=== PATIENT | male | born 2000 | race Hispanic/Latino ===

== ENCOUNTER 2023-11-10 10:29 | Inpatient (IN) | payer OTHER, SELFPAY ==
--- NOTE | 2023-11-10 11:26 | RAD REPORT ---
EXAM DESCRIPTION: CT - Head Brain Wo Cont - 11/10/2023 11:18 am CLINICAL HISTORY: HTN;Headache COMPARISON: No comparisons TECHNIQUE: All CT scans are performed using dose optimization technique as appropriate and may inclu de automated exposure control or mA/KV adjustment according to patient size. FINDINGS: No intracranial hemorrhage, hydrocephalus or extra-axial fluid collection.No areas of brai n edema or evidence of midline shift. The paranasal sinuses and mastoids are clear. The calvarium is intact. IMPRESSION: No acute intracranial abnormality.
--- NOTE | 2023-11-10 11:34 | RAD REPORT ---
EXAM DESCRIPTION: RAD - Chest Single View - 11/10/2023 11:26 am CLINICAL HISTORY: CHEST PAIN COMPARISON: No comparisons FINDINGS: Lines: None. Lungs: No evidence of edema or pneumonia. Pleural: No significant pleural effusions or pneumothorax. Cardiac: The heart size is within normal limits. Mediastinum: Within normal limits. Bones: No acute fractures. Other: None IMPRESSION: No acute cardiopulmonary disease.
[2023-11-10 12:09] LABS: Absolute Eosinophils 0.3 K/uL (0-0.5); Absolute Lymphocytes (CBC) 1.3 K/uL (0.7-4.9); Absolute Monocytes 0.5 K/uL (0.1-1.3); Basophils % 0.4 % (0-1.3); Eosinophils % 2.8 % (0-4.4); Hematocrit 47.7 % (39.6-49.0); Hemoglobin 17.1 g/dL (13.6-17.9); Lymphocytes % 14.2 % (15.3-44.8); MCH 30.5 pg (27.0-35.0); MCHC 35.9 g/dL (32.0-36.0); MPV 8.9 fL (7.6-11.3); Monocytes % 5.4 % (3.3-12.3); Neutrophils % 77.2 % (41.7-73.7); Nucleated RBC Absolute Count 0.2 (0-0); Nucleated Red Blood Cells % 1.7 % (0-0); Platelets 261 thou/uL (152-406); Red Cell Distribution Width 13.7 % (12.1-15.2)
[2023-11-10 12:26] LABS: SARS-CoV-2 Antigen CONTROL BLUE LINE VIS/BG OK; SARS-CoV-2 Antigen Rapid Res Negative (Negative)
[2023-11-10 12:29] LABS: Albumin 4.4 g/dL (3.4-5.0); Albumin/Globulin Ratio 1.1 (1.1-1.8); Anion Gap 10.4 mEq/L (5.0-15.0); Bilirubin Direct 0.1 mg/dL (0-0.2); Bilirubin Indirect, Calculated 0.4 mg/dL (0.2-0.8); Bilirubin Total 0.5 mg/dL (0.2-1.0); Globulin 4.1 g/dL (2.3-3.5); Potassium 3.4 mEq/L (3.5-5.1); Protein, Total 8.5 g/dL (6.4-8.2)
[2023-11-10 12:30] LABS: Troponin High Sensitivity 290.5 pg/mL (<58.9)
[2023-11-10 12:49] LABS: Atypical Lymphocytes 1 %; Band Neutrophils 2 % (0-1); Blood Morphology Comment NOT SEEN (NOT SEEN); Differential Total Cells Count 100; Eosinophils 1 % (0-3); Lymphocytes 21 % (15-42); Monocytes 1 % (0-10); Platelet Estimate ADEQ; Segmented Neutrophils 74 % (40-80)
[2023-11-10] MEDS ORDERED: cloNIDine HCL 0.1 MG TAB ONE (13:09)
--- NOTE | 2023-11-10 13:24 | EDPHYS ---
Physician Documentation [facility] Name: Mckinley Whitmore Age: 23 yrs Sex: Male : 2000 Arrival Date: 11/10/2023 Time: 10:29 Bed 18 Private MD: ED Physician Ta Cotton HPI: 11/09 11:28 This 23 yrs old Male presents to ER via Ambulatory with complaints of Chest rn Pain, High Blood Pressure, Vomiting. 11:28 The patient has elevated blood pressure and discovered this at a physician's office. rn Onset: The symptoms/episode began/occurred at an unknown time. Modifying factors:. Severity of symptoms: At its worst the blood pressure was moderate, in the emergency department the blood pressure is unchanged. The patient has not experienced similar symptoms in the past. Patient reports sent here for evaluation of high blood pressure by his PCP. Went to clinic today for 3 days of runny nose, sneezing, myalgias and noted to have high blood pressure. Patient reports father with high blood pressure but not sure when he started medication. Patient reports mild headache, intermittent chest pain that follows sneezing episodes and myalgias. No known fever. No shortness of breath. No abdominal or back pain.. Historical: - Allergies: 10:45 No Known Allergies; hb - Home Meds: 10:45 None [Active]; hb - PMHx: 10:45 None; hb - PSHx: 10:45 None; hb - Immunization history:: Adult Immunizations up to date. - Infectious Disease History:: Denies. - Social history:: Smoking status: Patient denies any tobacco usage or history of. - Family history:: not pertinent. - Hospitalizations: : No recent hospitalization is reported. ROS: 11:28 Constitutional: Negative for fever, chills, and weight loss, Eyes: Negative for injury, rn pain, redness, and discharge, ENT: Positive for runny nose and congestion Neck: Negative for injury, pain, and swelling, Cardiovascular: Positive for chest pain Respiratory: Negative for shortness of breath, cough, wheezing, and pleuritic chest pain, Abdomen/GI: Positive for nausea and vomiting Back: Negative for injury and pain, MS/Extremity: Negative for injury and deformity, Skin: Negative for injury, rash, and discoloration, Neuro: Positive for headache and generalized weakness Exam: 11:28 Constitutional: This is a well developed, well nourished patient who is awake, alert, rn and in no acute distress. Head/Face: Normocephalic, atraumatic. Eyes: Pupils equal round and reactive to light, extra-ocular motions intact. Lids and lashes normal. Conjunctiva and sclera are non-icteric and not injected. Cornea within normal limits. Periorbital areas with no swelling, redness, or edema. Neck: Trachea midline, no masses palpated, and no cervical lymphadenopathy. Supple, full range of motion without nuchal rigidity, or vertebral point tenderness. No Meningismus. Cardiovascular: Regular rate and rhythm. No pulse deficits. Respiratory: No increased work of breathing, no retractions or nasal flaring. Abdomen/GI: Soft, non-tender Skin: Warm, dry MS/ Extremity: Pulses equal, no cyanosis. Neuro: Awake and alert, GCS 15, oriented to person, place, time, and situation. Cranial nerves II-XII grossly intact. Motor strength 5/5 in all extremities. Sensory grossly intact. Cerebellar exam normal. Normal gait. 14:41 ECG was reviewed by the Attending Physician. rn Vital Signs: 10:43 BP 192 / 128; Pulse 61; Resp 14; Temp 98.2(TE); Pulse Ox 99% on R/A; Weight 116.12 kg; hb Height 5 ft. 9 in. ; Pain 6/10; 12:00 BP 155 / 109; Pulse 71; Resp 16; Pulse Ox 96% ; db 13:00 BP 159 / 115; Pulse 64; Resp 18; Pulse Ox 97% on R/A; db 14:00 BP 153 / 107; Pulse 67; Resp 15; Pulse Ox 98% on R/A; db 14:30 BP 133 / 87; Pulse 75; Resp 15; Pulse Ox 96% on R/A; db 15:14 BP 122 / 88; Pulse 70; Resp 18; Pulse Ox 100% on R/A; db 10:43 Body Mass Index 37.80 (116.12 kg, 175.26 cm) hb 10:43 Pain Scale: Adult hb MDM: 10:52 Patient medically screened. rn 13:22 Differential diagnosis: hypertensive crisis, Malignant HTN, intracerebral hemorrhage. rn Data reviewed: vital signs, nurses notes, lab test result(s), EKG, radiologic studies, and as a result, I will admit patient. Consideration of Admission/Observation Patient was admitted/placed on observation. Escalation of care including admission/observation considered. Counseling: I had a detailed discussion with the patient and/or guardian regarding the historical points, exam findings, and any diagnostic results supporting the discharge/admit diagnosis, the presence of at least one elevated blood pressure reading (>120/80) during this emergency department visit, lab results, radiology results, the need for further work-up and treatment in the hospital. Response to treatment: the patient's symptoms have mildly improved after treatment, and as a result, I will admit patient. ED course: Patient with malignant hypertension, elevated troponin, will admit to hospital service for further reduction and cardiology consultation. . 11/09 11:06 Order name: Basic Metabolic Panel; Complete Time: 12:37 rn 11/09 11:06 Order name: CBC with Diff; Complete Time: 13:22 rn 11/09 11:06 Order name: LFT's; Complete Time: 12:37 rn 11/09 11:06 Order name: NT PRO-BNP; Complete Time: 12:37 rn 11/09 11:06 Order name: Troponin HS; Complete Time: 12:37 rn 11/09 11:06 Order name: SARS RAPID; Complete Time: 12:37 rn 11/09 11:06 Order name: Flu; Complete Time: 12:37 rn 11/09 11:06 Order name: Strep rn 11/09 12:20 Order name: Manual Differential; Complete Time: 13:22 EDCA 11/09 12:31 Order name: Throat Culture EDCA 11/09 14:11 Order name: Troponin High Sensitivity EDCA 11/09 14:11 Order name: Troponin High Sensitivity EDCA 11/09 14:11 Order name: Troponin High Sensitivity EDCA 11/09 11:06 Order name: CT Head Brain wo Cont; Complete Time: 11:42 rn 11/09 11:06 Order name: XRAY Chest (1 view); Complete Time: 11:42 rn 11/09 14:10 Order name: Echo with Doppler EDCA 11/09 10:54 Order name: EKG; Complete Time: 10:54 rn 11/09 10:54 Order name: EKG - Nurse/Tech; Complete Time: 12:03 rn 11/09 11:06 Order name: Cardiac monitoring; Complete Time: 12:12 rn 11/09 11:06 Order name: IV Saline Lock; Complete Time: 12:02 rn 11/09 11:06 Order name: Labs collected and sent; Complete Time: 12:02 rn 11/09 11:06 Order name: O2 Per Protocol; Complete Time: 12:02 rn 11/09 11:06 Order name: O2 Sat Monitoring; Complete Time: 12:02 rn EC:41 Rate is 55 beats/min. Rhythm is regular. QRS [place] is Normal. DE interval is normal. QRS rn interval is normal. QT interval is normal. No Q waves. T waves are Normal. No ST changes noted. Clinical impression: Sinus bradycardia. Interpreted by me. Reviewed by me. Administered Medications: 13:00 Drug: cloNIDine PO 0.2 mg PO once Route: PO; db 13:51 Drug: Aspirin PO Chewable Tablet 324 mg PO once; 81 mg tablets x 4 Route: PO; db 15:15 Not Given (BP LOWERr): mg PO once db Disposition Summary: 11/10/23 13:24 Hospitalization Ordered Notes: Hospitalization Status: Observation rn Location: Telemetry/MedSurg (observation) rn Condition: Stable rn Problem: new rn Symptoms: have improved rn Bed/Room Type: Standard rn Provider: Pardeep Cotton(11/10/23 13:32) rn Room Assignment: [facility](11/10/23 14:20) Diagnosis - Essential (primary) hypertension rn - Elevated troponin rn - Chest pain, unspecified rn Forms: - Medication Reconciliation Form rn - SBAR form rn - Leadership Thank You Letter rn Signatures: Dispatcher [employer] EDCA Ta Cotton MD MD rn Attema, Lee, OLD TESTAMENT PROFESSOR-C OLD TESTAMENT PROFESSOR-Cla1 Laura De Jesus RN RN Luiza Mcdaniels Danielle RN RN db Corrections: (The following items were deleted from the chart) 11:07 11:07 BASIC METABOLIC PANEL+C.LAB.BRZ ordered. EDMS EDMS 11:07 11:07 CBC+H.LAB.BRZ ordered. EDMS EDMS 11:07 11:07 HEPATIC FUNCTION+C.LAB.BRZ ordered. EDMS EDMS 11:07 11:07 PROBNP+C.LAB.BRZ ordered. EDMS EDMS 11:07 11:07 Troponin High Sensitivity+FIDE.BRZ ordered. EDMS EDMS 13:32 13:24 Allan High rn rn 14:20 13:24 rohan camacho
--- NOTE | 2023-11-10 13:24 | ER ---
Nurse's Notes [facility] Name: Mckinley Whitmore Age: 23 yrs Sex: Male : 2000 Arrival Date: 11/10/2023 Time: 10:29 Bed 18 Private MD: Diagnosis: Essential (primary) hypertension;Elevated troponin;Chest pain, unspecified Presentation: 11/09 10:43 Chief complaint: Sent by Mariajose Carter for BP 240/150. 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 Coronavirus screen: At this time, the client does not indicate any symptoms associated with coronavirus-19. Ebola Screen: No symptoms or risks identified at this time. Initial Sepsis Screen: Does the patient meet any 2 criteria? No. Patient's initial sepsis screen is negative. Does the patient have a suspected source of infection? No. Patient's initial sepsis screen is negative. Risk Assessment: Do you want to hurt yourself or someone else? Patient reports no desire to harm self or others. Onset of symptoms was November 09, 2023. 10:43 Method Of Arrival: Ambulatory hb 10:43 Acuity: ELÍAS 2 hb Triage Assessment: 10:45 General: Appears in no apparent distress. Behavior is calm, cooperative. Pain: Pain hb currently is 6 out of 10 on a pain scale. Neuro: Level of Consciousness is awake, alert, obeys commands, Oriented to person, place, time, situation. Cardiovascular: Reports chest pain, Patient's skin is warm and dry. Respiratory: Respiratory effort is even, unlabored, Respiratory pattern is regular, symmetrical. Historical: - Allergies: 10:45 No Known Allergies; hb - Home Meds: 10:45 None [Active]; hb - PMHx: 10:45 None; hb - PSHx: 10:45 None; hb - Immunization history:: Adult Immunizations up to date. - Infectious Disease History:: Denies. - Social history:: Smoking status: Patient denies any tobacco usage or history of. - Family history:: not pertinent. - Hospitalizations: : No recent hospitalization is reported. Screenin:13 [facility] ED Fall Risk Assessment (Adult) History of falling in the last 3 months, db including since admission No falls in past 3 months (0 pts) Confusion or Disorientation No (0 pts) Intoxicated or Sedated No (0 pts) Impaired Gait No (0 pts) Mobility Assist Device Used No (0 pt) Altered Elimination No (0 pt) Score/Fall Risk Level 0 - 2 = Low Risk Oriented to surroundings, Maintained a safe environment. Abuse screen: Denies threats or abuse. Denies injuries from another. Nutritional screening: No deficits noted. Tuberculosis screening: No symptoms or risk factors identified. Assessment: 10:52 Reassessment: Patient appears in no apparent distress at this time. Patient and/or db family updated on plan of care and expected duration. Pain level reassessed. Patient is alert, oriented x 3, equal unlabored respirations, skin warm/dry/pink. General: Appears in no apparent distress. comfortable, Behavior is calm, cooperative. 13:00 Reassessment: Patient appears in no apparent distress at this time. Patient and/or db family updated on plan of care and expected duration. Pain level reassessed. Patient is alert, oriented x 3, equal unlabored respirations, skin warm/dry/pink. Pain: Denies pain. Pain does not radiate. Pain began gradually. Neuro: Level of Consciousness is awake, alert, obeys commands, Oriented to person, place, time, situation. Cardiovascular: Reports chest pain. Respiratory: Airway is patent Respiratory effort is even, unlabored, Respiratory pattern is regular, symmetrical. GI: No deficits noted. No signs and/or symptoms were reported involving the gastrointestinal system. : No deficits noted. No signs and/or symptoms were reported regarding the genitourinary system. 14:00 Reassessment: Patient appears in no apparent distress at this time. Patient and/or db family updated on plan of care and expected duration. Pain level reassessed. Patient is alert, oriented x 3, equal unlabored respirations, skin warm/dry/pink. 14:54 Reassessment: Patient appears in no apparent distress at this time. Patient and/or db family updated on plan of care and expected duration. Pain level reassessed. Patient is alert, oriented x 3, equal unlabored respirations, skin warm/dry/pink. REPORT FAXED TO 4TH FLOOR. 15:01 Reassessment: Patient appears in no apparent distress at this time. Patient and/or db family updated on plan of care and expected duration. Pain level reassessed. Patient is alert, oriented x 3, equal unlabored respirations, skin warm/dry/pink. 15:15 Reassessment: NOTIFIED PROVIDER GILES PATIENT LISINOPRIL HELD DUE TO BP LOWERED. db Vital Signs: 10:43 BP 192 / 128; Pulse 61; Resp 14; Temp 98.2(TE); Pulse Ox 99% on R/A; Weight 116.12 kg; hb Height 5 ft. 9 in. ; Pain 6/10; 12:00 BP 155 / 109; Pulse 71; Resp 16; Pulse Ox 96% ; db 13:00 BP 159 / 115; Pulse 64; Resp 18; Pulse Ox 97% on R/A; db 14:00 BP 153 / 107; Pulse 67; Resp 15; Pulse Ox 98% on R/A; db 14:30 BP 133 / 87; Pulse 75; Resp 15; Pulse Ox 96% on R/A; db 15:14 BP 122 / 88; Pulse 70; Resp 18; Pulse Ox 100% on R/A; db 10:43 Body Mass Index 37.80 (116.12 kg, 175.26 cm) hb 10:43 Pain Scale: Adult hb ED Course: 10:34 Patient arrived in ED. mg5 10:42 Angelina Maza, RN is Primary Nurse. db 10:45 Triage completed. hb 10:45 Arm band placed on. hb 10:46 Client placed on continuous cardiac and pulse oximetry monitoring. NIBP monitoring hb applied. commercial account executive on. Pulse ox on. NIBP on. 10:52 Ta Cotton MD is Attending Physician. rn 11:19 CT Head Brain wo Cont In Process Unspecified. EDMS 11:28 XRAY Chest (1 view) In Process Unspecified. EDMS 12:01 Initial lab(s) drawn, by me, sent to lab. COVID swab sent to lab. Flu and/or RSV swab ty sent to lab. Strep swab sent to lab. Inserted saline lock: 20 gauge in right antecubital area, using aseptic technique. Blood collected. 12:02 Strep Sent. ty 12:02 Flu Sent. ty 12:02 SARS RAPID Sent. ty 12:02 Basic Metabolic Panel Sent. ty 12:02 CBC with Diff Sent. ty 12:02 LFT's Sent. ty 12:03 NT PRO-BNP Sent. ty 12:03 Troponin HS Sent. ty 12:13 Patient has correct armband on for positive identification. Bed in low position. Call db light in reach. Side rails up X 1. Provided Education on: LABS. 13:23 Allan High MD is Hospitalizing Provider. rn 13:32 Pardeep Cotton MD is Hospitalizing Provider. rn 15:01 No provider procedures requiring assistance completed. Patient admitted, IV remains in db place. O2 via room air. Administered Medications: 13:00 Drug: cloNIDine PO 0.2 mg PO once Route: PO; db 13:51 Drug: Aspirin PO Chewable Tablet 324 mg PO once; 81 mg tablets x 4 Route: PO; db 15:15 Not Given (BP LOWERr): [id number] mg PO once db Medication: 15:01 VIS not applicable for this client. db Outcome: 13:24 Decision to Hospitalize by Provider. rn 15:01 Admitted to ER Hold. Please see [facility] for further documentation. db 15:01 Condition: stable 15:01 Instructed on the need for admit, 15:21 Patient left the ED. db Signatures: Dispatcher [employer] EDTa Schmidt MD MD rn Baxter, Heather, RN RN hb Benton, Danielle, RN RN db Shanice Mukherjee mg5 Michael Thomas ty
[2023-11-10] MEDS ORDERED: ASPIRIN 81 MG CHEWABLE TABLET ONE (13:45)
--- NOTE | 2023-11-10 14:50 | P.HP ---
Certification for Inpatient Patient admitted to: Inpatient With expected LOS: >2 Midnights Patient will require the following post-hospital care: None Practitioner: I am a practitioner with admitting privileges, knowledge of patient current condition, hospital course, and medical plan of care. Services: Services provided to patient in accordance with Admission requirements found in Title 42 Section 412.3 of the Code of Federal Regulations Patient History Date of Service: 11/10/23 Reason for admission: Hypertensive emergency History of Present Illness: 23-year-old otherwise healthy male presents emergency department for elevated blood pressure. He reports that he been having sneezing followed by 2 to 3 minutes of generalized bodyaches for the past 3 days and for that reason went to see a primary care provider. This was his first time visiting a PCP and upon arrival his blood pressure was checked and found to be markedly elevated as high as 220/150. It was rechecked multiple times at their facility he subsequently became nauseous and threw up and was sent to the emergency department for evaluation. He denies any known history of hypertension, has not seen a primary care doctor in the past but does get annual physicals with work and has never been told he has high blood pressure in the past. He denies any recreational drug use, did take some oral decongestants yesterday while at work, he is unsure what he took when he took 2 pills as directed on the box. He does admit to occasional caffeine use with a red bull but did not drink 1 today or yesterday. He was evaluated in the emergency department his labs are significant for a moderately elevated troponin 290.5, chemistry otherwise unremarkable. EKG without STEMI criteria, and sinus rhythm. ED prior wishes to admit for hypertensive emergency - Past Medical/Surgical History -: None -: None Psychosocial/ Personal History: Lives with his significant other, works in the [employer] - Family History Father -: Hypertension - Social History Alcohol use: No CD- Drugs: No Caffeine use: Yes Place of Residence: Home Review of Systems 10-point ROS is otherwise unremarkable Respiratory: Other (Sneezing periodically) Musculoskeletal: Other (Myalgias) Physical Examination - Physical Exam General: Alert, In no apparent distress, Oriented x3 HEENT: Atraumatic, PERRLA Neck: Supple, 2+ carotid pulse no bruit Respiratory: Clear to auscultation bilaterally, Normal air movement Cardiovascular: Regular rate/rhythm, Normal S1 S2 Gastrointestinal: Normal bowel sounds Musculoskeletal: No tenderness Integumentary: No rashes Neurological: Normal speech, Normal strength at 5/5 x4 extr, Normal tone - Studies Laboratory Data (last 24 hrs) 11/10/23 11/10/23 11:55 11:55 WBC 9.10 Hgb 17.1 Hct 47.7 Plt Count 261 Sodium 139 Potassium 3.4 L BUN 12 Creatinine 0.79 Glucose 113 H Total Bilirubin 0.5 AST 27 ALT 62 H Alkaline Phosphatase 74 Microbiology Data (last 24 hrs): 11/10/23 11:57 Throat Group A Streptococcus Rapid Screen - Final 11/10/23 11:57 Nasopharnyx Influenza Type A Antigen Screen - Final 11/10/23 11:57 Nasopharnyx Influenza Type B Antigen Screen - Final Assessment and Plan - Plan Assessment: Hypertensive emergency NSTEMI Plan: Hypertensive emergency NSTEMI Significant hypertension, initially 200s over 140/150 Given clonidine 0.2 in ED, blood pressure improved to 160s over 115 Initial troponin 290, will trend troponins, monitor on telemetry obtain echocardiogram/cardiology consult Start lisinopril 10 mg daily, titrate medications as needed Does report use of oral decongestants yesterday on 11/08, denies excess caffeine intake Only family history is father has hypertension as well DVT PPX: Ambulate 4 times daily Code status: Full Discharge Plan: Home Plan to discharge in: 48 Hours - Advance Directives Does patient have a Living Will: No Does patient have a Durable POA for Healthcare: No - Code Status/Comfort Care Code Status Assessed: Yes (Full code) Critical Care: No Time Spent Managing Pts Care (In Minutes): 70
[2023-11-10] MEDS ORDERED: HYDRALAZINE HCL 20 MG/ML VIAL IV PRN (15:33)
[2023-11-10] MEDS ORDERED: ACETAMINOPHEN 500 MG TAB PO PRN (15:33)
[2023-11-10 15:55] VITALS: BMI 37.8
[2023-11-10] MEDS: POTASSIUM CL SA 10 MEQ TAB PO ONE (16:32)
[2023-11-10] MEDS ORDERED: INFLUENZA VACCINE (for 6+ mo) 0.5 ML DOSE IMVAC ONE (17:00)
--- NOTE | 2023-11-10 20:42 | CON ---
Date of Consultation: 11/10/2023 Reason For Consultation: Elevated blood pressure. History Of Present Illness: A 23-year-old male with obesity, otherwise no other medical history, who presented to an Urgent Care with wheezing and cough and sneezing, upper respiratory tract infection symptoms. He was also found to have a blood pressure of 220/150, is sent to the emergency room. Blo od pressure was treated and it improved significantly. He denies having any chest pain or shortness of breath. No other complaints. Troponin was borderline elevated. Hence, I was consulted. Past Medical History: None. Medications: None. Allergies: NO KNOWN DRUG ALLERGIES. Family History: No premature coronary artery disease or cancer. Social History: Does not smoke or drink. Does not use any drugs. Review of Systems: All systems reviewed and they are negative except as mentioned in HPI. Physical Examination: Vital signs: Reviewed. Head and Neck: Pupils are equal, reactive to light. Intact eye movements. No JVD. No cervical lym phadenopathy. Neck: Supple. Thyroid is not enlarged. Lungs: Clear to auscultation bilaterally. No rhonchi, wheezing, or crackles. No accessory muscle u se. Heart: Regular rate and rhythm. No extra sounds. Abdomen: Soft, nontender. Bowel sounds positive. No organomegaly. No masses or hernia. No rigidi ty or rebound. Extremities: No edema, clubbing, cyanosis. Intact pulses. Skin: No rashes. Neurologic: Alert, awake, and oriented x3. No acute focal deficits appreciated. Investigations: Troponin 290. BUN 12, creatinine 0.79. BNP is 43. Hemoglobin is 17.1. Assessment And Plan: 1.Elevated troponin. This is likely demand ischemia. Given his age, this is very unlikely to be ac nedra coronary syndrome, however, trend 2 more sets of cardiac enzymes and obtain an echo. 2.Hypertensive emergency. Blood pressure is down now. Recommend to start him on oral medications w ith Losartan with hydrochlorothiazide 25/12.5 mg daily. Monitor BUN, creatinine, and electrolytes da aileen on that and monitor his response to the above treatment. Also, I recommend to obtain CT angiogra m of the chest to evaluate for possible coarctation of the aorta as this is an extremely high blood p ressure for a young patient like this. It is likely secondary hypertension. 3.Hypokalemia. Replace potassium. SR/MODL Voice ID: [id number] Report ID: [id number]
[2023-11-10 21:27] LABS: Specific Gravity > 1.030 (1.005-1.030); Sqamous Epithelial None Seen /HPF (None Seen); Urine Bacteria None Seen /HPF (<20); Urine Bilirubin NEGATIVE (Negative); Urine Blood Negative (Negative); Urine Clarity Clear (Clear); Urine Color Yellow (Yellow); Urine Culture Reflex Order NOT NEEDED; Urine Glucose NEGATIVE (Negative); Urine Ketones NEGATIVE (Negative); Urine Microscopic Reflex YN ORDER UMIC; Urine Mucus 2+ /HPF (None Seen); Urine Nitrite NEGATIVE (Negative); Urine Protein 1+ (Negative); Urine RBC <5 /HPF (None Seen); Urine Urobilinogen Normal (Normal); Urine WBC <5 /HPF (<5)
[2023-11-11 05:27] LABS: Absolute Eosinophils 0.4 K/uL (0-0.5); Absolute Lymphocytes (CBC) 2.3 K/uL (0.7-4.9); Absolute Monocytes 0.5 K/uL (0.1-1.3); Basophils % 0.8 % (0-1.3); Eosinophils % 6.1 % (0-4.4); Hematocrit 41.6 % (39.6-49.0); Lymphocytes % 36.4 % (15.3-44.8); MCH 30.8 pg (27.0-35.0); MCHC 36.1 g/dL (32.0-36.0); MCV 85.4 fL (80-100); MPV 8.6 fL (7.6-11.3); Monocytes % 8.4 % (3.3-12.3); Neutrophils % 48.3 % (41.7-73.7); Nucleated Red Blood Cells % 0.2 % (0-0); Platelets 237 thou/uL (152-406); RBC Red Blood Cell Count 4.87 M/uL (4.33-5.43); Red Cell Distribution Width 13.6 % (12.1-15.2)
[2023-11-11 05:58] LABS: Albumin 3.7 g/dL (3.4-5.0); Anion Gap 7.9 mEq/L (5.0-15.0); Bilirubin Total 0.4 mg/dL (0.2-1.0); Globulin 3.6 g/dL (2.3-3.5); Potassium 3.9 mEq/L (3.5-5.1); Protein, Total 7.3 g/dL (6.4-8.2); Thyroid Stimulating Hormone 0.711 uIU/mL (0.358-3.740)
[2023-11-11] MEDS: hydroCHLOROthiazide 12.5 MG CAP PO SCH (08:10)
[2023-11-11] MEDS: LOSARTAN POTASSIUM 50 MG TABLET PO SCH (08:10)
[2023-11-11] MEDS: ASPIRIN EC 81 MG TAB PO SCH (08:11)
[2023-11-11 08:28] VITALS: BP 133/80
--- NOTE | 2023-11-11 09:46 | RAD REPORT ---
EXAM DESCRIPTION: CT - Chest Angio - 11/11/2023 8:32 am CLINICAL HISTORY: Chest pain severe hypertension COMPARISON: None. TECHNIQUE: Dynamically enhanced axial 3 mm thick images of the chest were obtained during administra tion of 100 mL Isovue 370 IV contrast. Coronal and oblique reconstruction images were generated and r eviewed. Exam utilizes a protocol for optimal evaluation of pulmonary arterial tree. Maximum intensity projections 3D imaging was utilized All CT scans are performed using dose optimization technique as appropriate and may include automated exposure control or mA/KV adjustment according to patient size. FINDINGS: A thoracic aortic aneurysm is not present. No thoracic aortic dissection is seen. No aortic coarctation Soft tissue anterior mediastinum has the appearance of normal thymus Suboptimal opacification of the pulmonary arteries. No gross pulmonary embolus seen A pleural effusion is not seen. A pericardial effusion is not seen. A lung consolidation is not present. Mild fatty liver IMPRESSION: No significant abnormality is displayed
[2023-11-11] MEDS ORDERED: INFLUENZA VACCINE (for 6+ mo) 0.5 ML DOSE IMVAC ONE (10:00)
[2023-11-11 10:59] VITALS: TEMP 98.1
--- NOTE | 2023-11-11 12:27 | P.DS ---
Admission Date: 11/10/23 Discharge Date: 11/11/23 Reason for Admission: Hypertensive emergency Consultations: Cardiology-Dr. Alston Brief History of Present Illness: 23-year-old otherwise healthy male presents emergency department for elevated blood pressure. He reports that he been having sneezing followed by 2 to 3 minutes of generalized bodyaches for the past 3 days and for that reason went to see a primary care provider. This was his first time visiting a PCP and upon arrival his blood pressure was checked and found to be markedly elevated as high as 220/150. It was rechecked multiple times at their facility he subsequently became nauseous and threw up and was sent to the emergency department for evaluation. He denies any known history of hypertension, has not seen a primary care doctor in the past but does get annual physicals with work and has never been told he has high blood pressure in the past. He denies any recreational drug use, did take some oral decongestants yesterday while at work, he is unsure what he took when he took 2 pills as directed on the box. He does admit to occasional caffeine use with a red bull but did not drink 1 today or yesterday. He was evaluated in the emergency department his labs are significant for a moderately elevated troponin 290.5, chemistry otherwise unremarkable. EKG without STEMI criteria, and sinus rhythm. ED prior wishes to admit for hypertensive emergency Hospital Course: Assessment: Hypertensive emergency NSTEMI Patient was admitted to the hospital for hypertensive emergency initially with blood pressures greater than 220 systolic over 120 diastolic and a mildly elevated high-sensitivity opponent around 200. His blood pressure markedly improved after 0.2 mg of clonidine was given in the emergency department. He was asymptomatic from this blood pressure and remained asymptomatic during hospitalization. CT skin of his head was performed which was negative for acute abnormalities as well as a CT angiogram of the chest to rule out aortic coarctation. CTA of the chest was also negative for acute findings. Troponin trended down when rechecked, chemistry/renal function remained within normal limits and blood pressures in the 130s today after losartan/hydrochlorothiazide. Patient was seen by cardiology who recommends initiation of losartan 25 mg and hydrochlorothiazide 12.5 mg daily which have been sent to his pharmacy. Please follow-up with your primary care doctor in 1 week Please also follow-up with cardiology in 1 to 2 weeks and schedule outpatient echocardiogram Please obtain a blood pressure cuff and check your blood pressure daily as discussed keeping a log for your primary care doctor <Shaheen Deleon - Last Filed: 11/11/23 12:26> Admission Date: 11/10/23 Discharge Date: 11/11/23 <Pardeep Cotton - Last Filed: 11/11/23 17:09> Disposition: ROUTINE DISCHARGE Discharge Condition: GOOD Vital Signs/Physical Exam: Temp Pulse Resp BP Pulse Ox 98.1 F 69 18 133/80 98 11/11/23 08:00 11/11/23 08:10 11/11/23 08:00 11/11/23 08:10 11/11/23 08:00 General: Alert, In no apparent distress, Oriented x3 HEENT: Atraumatic, PERRLA Neck: Supple, JVD not distended Respiratory: Clear to auscultation bilaterally, Normal air movement Cardiovascular: Regular rate/rhythm, Normal S1 S2 Gastrointestinal: Normal bowel sounds Musculoskeletal: No tenderness Integumentary: No rashes Neurological: Normal speech, Normal tone Laboratory Data at Discharge: WBC 6.30 thou/uL (4.3-10.9) 11/11/23 04:37 Hgb 15.0 g/dL (13.6-17.9) D 11/11/23 04:37 Hct 41.6 % (39.6-49.0) 11/11/23 04:37 Plt Count 237 thou/uL (152-406) 11/11/23 04:37 Sodium 139 mEq/L (136-145) 11/11/23 04:37 Potassium 3.9 mEq/L (3.5-5.1) D 11/11/23 04:37 BUN 15 mg/dL (7-18) 11/11/23 04:37 Creatinine 0.92 mg/dL (0.70-1.30) 11/11/23 04:37 Glucose 115 mg/dL (74-106) H 11/11/23 04:37 Total Bilirubin 0.4 mg/dL (0.2-1.0) 11/11/23 04:37 AST 21 U/L (15-37) 11/11/23 04:37 ALT 50 U/L (16-61) 11/11/23 04:37 Alkaline Phosphatase 63 U/L (45-117) 11/11/23 04:37 <Shaheen Deleon - Last Filed: 11/11/23 12:26> Vital Signs/Physical Exam: Temp Pulse Resp BP Pulse Ox 98.1 F 69 18 133/80 98 11/11/23 08:00 11/11/23 08:10 11/11/23 08:00 11/11/23 08:10 11/11/23 08:00 Laboratory Data at Discharge: WBC 6.30 thou/uL (4.3-10.9) 11/11/23 04:37 Hgb 15.0 g/dL (13.6-17.9) D 11/11/23 04:37 Hct 41.6 % (39.6-49.0) 11/11/23 04:37 Plt Count 237 thou/uL (152-406) 11/11/23 04:37 Sodium 139 mEq/L (136-145) 11/11/23 04:37 Potassium 3.9 mEq/L (3.5-5.1) D 11/11/23 04:37 BUN 15 mg/dL (7-18) 11/11/23 04:37 Creatinine 0.92 mg/dL (0.70-1.30) 11/11/23 04:37 Glucose 115 mg/dL (74-106) H 11/11/23 04:37 Total Bilirubin 0.4 mg/dL (0.2-1.0) 11/11/23 04:37 AST 21 U/L (15-37) 11/11/23 04:37 ALT 50 U/L (16-61) 11/11/23 04:37 Alkaline Phosphatase 63 U/L (45-117) 11/11/23 04:37 <Pardeep Cotton - Last Filed: 11/11/23 17:09> Diet: Regular Activity: Ad cely Time spent managing pt's care (in minutes): 30 <Shaheen Deleon - Last Filed: 11/11/23 12:26> Physician Review: Patient Assessed, Agree with Above Assessment and Plan (Patient seen and examined on rounds this morning with [employer] Adrienne. I performed a substantial part of the MDM during this patient's care today. BP much improved. Reports quite forceful and frequent sneezing prior to chest pain starting. Consistent with MSK etiology / soreness. workup otherwise negative) <Pardeep Cotton - Last Filed: 11/11/23 17:09> Home Medications: Losartan Potassium 25 mg PO DAILY #30 tab 11/11/23 hydroCHLOROthiazide [Hydrochlorothiazide] 12.5 mg PO DAILY #30 tab 11/11/23 New Medications: hydroCHLOROthiazide [Hydrochlorothiazide] 12.5 mg PO DAILY #30 tab Losartan Potassium 25 mg PO DAILY #30 tab Physician Discharge Instructions: Patient was admitted to the hospital for hypertensive emergency initially with blood pressures greater than 220 systolic over 120 diastolic and a mildly elevated high-sensitivity opponent around 200. His blood pressure markedly improved after 0.2 mg of clonidine was given in the emergency department. He was asymptomatic from this blood pressure and remained asymptomatic during hospitalization. CT skin of his head was performed which was negative for acute abnormalities as well as a CT angiogram of the chest to rule out aortic coarctation. CTA of the chest was also negative for acute findings. Troponin trended down when rechecked, chemistry/renal function remained within normal limits and blood pressures in the 130s today after losartan/hydrochlorothiazide. Patient was seen by cardiology who recommends initiation of losartan 25 mg and hydrochlorothiazide 12.5 mg daily which have been sent to his pharmacy. Please follow-up with your primary care doctor in 1 week Please also follow-up with cardiology in 1 to 2 weeks and schedule outpatient echocardiogram Please obtain a blood pressure cuff and check your blood pressure daily as discussed keeping a log for your primary care doctor Followup: Jim Alston MD [ACTIVE - CAN ADMIT] - 1-2 Weeks (call to schedule an appointment) GOVIND FERGUSON [Primary Care Provider] - 1 Week (call to schedule an appointment)
[2023-11-11 13:08] VITALS: O2SAT 98
== END 2023-11-11 13:15 | disposition home or self-care (01) | DRG 282 ==
LOC: ER 10:29 → ERHOLD 14:09 → 4TH 14:44
PROVIDERS: ADMIT Hospitalist; ATTEND Hospitalist
DX: I16.1 Hypertensive emergency (principal); I21.4 Non-ST elevation (NSTEMI) myocardial infarction; I10 Essential (primary) hypertension; E87.6 Hypokalemia; R79.89 Other specified abnormal findings of blood chemistry; Z11.52 Encounter for screening for COVID-19
CPT/HCPCS: 36415; 70450; 71045; 71275; 80048; 80053; 80076; 81001; 83880; 84439; 84443; 84484; 85025; 87070; 87081; 87804; 87811; 93005; 99285; Q9967